=== PATIENT | male | born 1995 | race Caucasian/White ===

== ENCOUNTER 2020-07-03 02:43 | Emergency (ER) | payer SELFPAY ==
[~2020-07-03] VITALS: Ht 182.9 cm; Wt 83.5 kg
[~2020-07-03 02:43] MED LIST: CEPH500 PO; HYDR1TAB94 PO; ONDA4ODT MM
[2020-07-03] MEDS ORDERED: Vibramycin100 MG PO (03:29)
== END 2020-07-03 03:52 | disposition home or self-care (01) ==
LOC: ER 02:43
DX: L02.413 Cutaneous abscess of right upper limb (principal); I89.1 Lymphangitis; Z79.899 Other long term (current) drug therapy
CPT/HCPCS: 99283